=== PATIENT | male | born 1955 | race Hispanic/Latino ===

== ENCOUNTER 2022-03-17 14:21 | Emergency (ER) | payer MEDICAID, OTHER ==
[~2022-03-17] VITALS: Ht 167.6 cm; Wt 86.2 kg
[2022-03-17 14:29] VITALS: BP 181/69
[2022-03-17] MEDS ORDERED: KETOROLAC 60 MG VIAL (30MG/ML) IM ONE (15:00)
[2022-03-17] MEDS ORDERED: CYCLOBENZAPRINE HCL 10 MG TABLET PO ONE (15:00)
[2022-03-17] MEDS ORDERED: CYCL10TA16 PO (16:07)
[2022-03-17] MEDS ORDERED: NAPR-1180 PO (16:07)
== END 2022-03-17 16:21 | disposition home or self-care (01) ==
LOC: EDH 14:21
DX: S39.012A Strain of muscle, fascia and tendon of lower back, initial encounter (principal); M51.36 Other intervertebral disc degeneration, lumbar region; I10 Essential (primary) hypertension; E78.00 Pure hypercholesterolemia, unspecified; M19.90 Unspecified osteoarthritis, unspecified site; X58.XXXA Exposure to other specified factors, initial encounter; Y93.89 Activity, other specified; Y92.89 Other specified places as the place of occurrence of the external cause; Y99.8 Other external cause status
CPT/HCPCS: 99283; 72100; 96372; J1885